=== PATIENT | female | born 1945 | race Two or more races ===

== ENCOUNTER 2020-02-27 02:37 | Inpatient (IN) | payer OTHER, MEDICAID ==
[~2020-02-27] VITALS: Ht 142.2 cm; Wt 63.6 kg
[2020-02-27] MEDS ORDERED: cloNIDine HCL 0.1 MG TAB PO ONE (03:45)
[2020-02-27 04:04] LABS: Basophils # (auto) 0.1 10 ^3/uL (0-0.2); Basophils % (auto) 0.7 % (0.0-2.0); Eosinophils # (auto) 0.2 10 ^3/uL (0-0.8); Hematocrit 41.9 % (36.0-46.0); Hemoglobin 13.8 g/dL (12.2-16.2); Lymphocytes # (auto) 2.7 10 ^3/uL (0.4-5.4); Lymphocytes % (auto) 29.9 % (10.0-50.0); Mean Corpuscular Hemoglobin 30.3 pg (28.0-32.0); Mean Corpuscular Volume 91.8 fL (80.0-100.0); Monocytes # (auto) 0.6 10 ^3/uL (0-1.3); Monocytes % (auto) 6.4 % (0.0-12.0); Neutrophils # (auto) 5.6 10 ^3/uL (1.6-8.6); Nucleated Red Blood Cells % 0.1 %; Platelet Count (auto) 297 10^3/uL (140-450); Red Blood Cells 4.57 10^6/uL (4.0-5.20); White Blood Cell 9.2 10^3/uL (4.4-10.8)
[2020-02-27 04:16] LABS: INR 1.03 (0.9-1.15); Partial Thromboplastin Time 28.7 sec (23.0-31.2)
[2020-02-27 04:19] LABS: Urine Bacteria FEW /hpf (None Seen); Urine Blood Negative /uL (Negative); Urine Specific Gravity 1.004 (1.001-1.035); Urine WBC 11 /hpf (0 - 5)
[2020-02-27 04:24] LABS: Chloride 104 mmol/L (98-107); Sodium 137 mmol/L (136-145)
[2020-02-27 04:28] LABS: Anion Gap 6 (5-15); BUN/Creatinine Ratio 20.6; Blood Urea Nitrogen 20 mg/dL (7-18); Calcium 9.7 mg/dL (8.5-10.1); Carbon Dioxide 27 mmol/L (21-32); GFR African American 72 mL/min; GFR Non-African American 59 mL/min; Glucose 101 mg/dL (74-106)
[2020-02-27 04:33] LABS: Alanine Aminotransferase 15 U/L (13-56); Alkaline Phosphatase 87 U/L (45-117); Aspartate Aminotransferase 25 U/L (15-37); Bilirubin, Total 0.5 mg/dL (0.2-1.0); Total Protein 8.1 g/dL (6.4-8.2)
[2020-02-27] MEDS ORDERED: cefTRIAXone 1GM/50ML D5W 50 ML IV ONE (04:45)
[2020-02-27] MEDS ORDERED: SODIUM CHLORIDE 0.9% 1,000 ML IV ONE ×2 (07:15)
[2020-02-27] MEDS ORDERED: ONDANSETRON HCL 4 MG/2 ML VIAL IV PRN (09:15)
[2020-02-27] MEDS ORDERED: NITROGLYCERIN 0.4 MG SL TAB SL PRN (09:15)
[2020-02-27] MEDS ORDERED: MORPHINE SULF INJ 2 MG/ML SYRINGE 1ML IV PRN ×2 (09:15)
[2020-02-27] MEDS ORDERED: ACETAMINOPHEN 500 MG TAB PO PRN (09:15)
[2020-02-27] MEDS ORDERED: HYDROcodone-ACET 5/325MG TAB PO PRN (09:15)
[2020-02-27] MEDS: NITROGLYCERIN 0.4MG/HR TOPICAL PATCH TD SCH (10:00)
[2020-02-27] MEDS: ASPirin-EC 81 mg tab PO SCH (10:57)
[2020-02-27] MEDS: FAMOTIDINE 20 MG TAB PO SCH (10:58)
[2020-02-27] MEDS: LISINOPRIL 10 MG TAB PO SCH (10:58)
[2020-02-27] MEDS ORDERED: LISI-646 PO (11:07)
[2020-02-27] MEDS ORDERED: SERT-274 PO (11:07)
[2020-02-27 13:00] VITALS: BP 151/64
[2020-02-27 17:00] VITALS: BP 159/78
[2020-02-27] MEDS ORDERED: ENALAPRILAT 1.25 MG/ML-1ML VIAL IV PRN (18:00)
[2020-02-27] MEDS ORDERED: hydrALAZINE HCL 20 MG/ML VL IV PRN (18:15)
[2020-02-27 22:00] VITALS: BP 125/53
[2020-02-27] MEDS: ATORVASTATIN 20 MG TAB PO SCH (22:00)
[2020-02-28 05:00] VITALS: BP 131/57
[2020-02-28 06:06] LABS: Basophils # (auto) 0.1 10 ^3/uL (0-0.2); Basophils % (auto) 0.7 % (0.0-2.0); Eosinophils # (auto) 0.1 10 ^3/uL (0-0.8); Hematocrit 40.5 % (36.0-46.0); Hemoglobin 13.5 g/dL (12.2-16.2); Lymphocytes # (auto) 2.2 10 ^3/uL (0.4-5.4); Lymphocytes % (auto) 27.8 % (10.0-50.0); Mean Corpuscular Hemoglobin 30.4 pg (28.0-32.0); Mean Corpuscular Hgb Conc. 33.2 g/dL (32.0-36.0); Mean Corpuscular Volume 91.5 fL (80.0-100.0); Monocytes # (auto) 0.5 10 ^3/uL (0-1.3); Neutrophils # (auto) 5.2 10 ^3/uL (1.6-8.6); Neutrophils % (auto) 64.5 % (37.0-80.0); Nucleated Red Blood Cells % 0.1 %; Platelet Count (auto) 273 10^3/uL (140-450); Red Blood Cells 4.42 10^6/uL (4.0-5.20); Red Cell Distribution Width 13.5 % (11.8-14.3)
[2020-02-28 06:23] LABS: Calcium 9.7 mg/dL (8.5-10.1); Potassium 3.7 mmol/L (3.5-5.1)
[2020-02-28 06:25] LABS: BUN/Creatinine Ratio 19.5
[2020-02-28 08:52] VITALS: BP 134/61
[2020-02-28] MEDS: cefTRIAXone 1GM/50ML D5W 50 ML IV SCH (08:58)
[2020-02-28] MEDS: FAMOTIDINE 20 MG TAB PO SCH (09:02)
[2020-02-28] MEDS: LISINOPRIL 10 MG TAB PO SCH (09:03)
[2020-02-28] MEDS: ASPirin-EC 81 mg tab PO SCH (09:03)
[2020-02-28] MEDS: NITROGLYCERIN 0.4MG/HR TOPICAL PATCH TD SCH (10:18)
[2020-02-28 12:54] VITALS: BP 134/54
[2020-02-28 16:50] VITALS: BP 121/59
[2020-02-28] MEDS: ATORVASTATIN 20 MG TAB PO SCH (21:33)
[2020-02-28 22:00] VITALS: BP 134/56
[2020-02-29 05:00] VITALS: BP 161/68
[2020-02-29 06:48] VITALS: BP 150/65
[2020-02-29] MEDS ORDERED: ADENOSINE 53 MG in GIVE UN-DILUTED 0 ML IV STA (08:23)
[2020-02-29 09:28] VITALS: BP 137/71
[2020-02-29 09:40] VITALS: BP 185/65
[2020-02-29] MEDS: LISINOPRIL 10 MG TAB PO SCH (10:36)
[2020-02-29] MEDS: ASPirin-EC 81 mg tab PO SCH (10:36)
[2020-02-29] MEDS: FAMOTIDINE 20 MG TAB PO SCH (10:36)
[2020-02-29] MEDS: cefTRIAXone 1GM/50ML D5W 50 ML IV SCH (10:36)
[2020-02-29] MEDS: NITROGLYCERIN 0.4MG/HR TOPICAL PATCH TD SCH (10:38)
[2020-02-29 13:51] VITALS: BP 137/71
[2020-02-29 14:27] VITALS: BP 132/57
== END 2020-02-29 16:25 | disposition home or self-care (01) | DRG 303 ==
LOC: ER 02:45 → TELE 02:46 → TELE-WESTW 10:10
PROVIDERS: ADMIT Nurse Practitioner Acute Care; ATTEND Internal Medicine
DX: I25.10 Atherosclerotic heart disease of native coronary artery without angina pectoris (principal); R00.1 Bradycardia, unspecified; E66.9 Obesity, unspecified; N18.30 Chronic kidney disease, stage 3 unspecified; N30.90 Cystitis, unspecified without hematuria; E78.5 Hyperlipidemia, unspecified; Z68.31 Body mass index [BMI] 31.0-31.9, adult; I13.10 Hypertensive heart and chronic kidney disease without heart failure, with stage 1 through stage 4 chronic kidney disease, or unspecified chronic kidney disease
CPT/HCPCS: 36415; 71045; 78452; 80048; 80053; 81001; 83880; 84443; 84484; 85025; 85610; 85730; 86141; 87086; 93005; 93017; 93306; 96361; 96365; 96366; G0378; J0153; J0696